=== PATIENT | male | born 1955 | race Caucasian/White ===

== ENCOUNTER 2018-04-12 06:19 | Outpatient (CLI) | payer MEDICARE, MEDICAID ==
[2018-04-12 09:49] LABS: Hemoglobin 15.9 g/dL (14.0-18.0); Mean Corpuscular HGB CONC 34.7 g/dL (32.0-36.0); Mean Corpuscular Hemoglobin 33.4 pg (27.0-31.0); Mean Corpuscular Volume 96.3 fL (78.0-98.0); Mean Platelet Volume 7.6 fL (7.4-10.4); Platelet Count 250 thou/uL (130-400); RBC Distribution Width 11.9 % (11.5-14.5); Red Blood Cell (RBC) Count 4.75 mill/uL (4.70-6.10); White Blood Cell (WBC) Count 7.9 thou/uL (4.8-10.8)
[2018-04-12 09:57] LABS: INR-International Normal Ratio 1.2; PTT 27.2 SEC (22.9-36.1); Prothrombin Time 15.1 SEC (12.0-14.7)
[2018-04-12 10:08] LABS: Anion Gap 12 mmol/L (10-20); BUN (Urea Nitrogen) 7 mg/dL (8.4-25.7); Calc. Creatinine Clearance 0 mL/min (70-130); Calcium 9.4 mg/dL (7.8-10.44); Carbon Dioxide 23 mmol/L (23-31); Chloride 102 mmol/L (98-107); Estimated GFR-MDRD Greater than 90; Glucose 124 mg/dL (80-115); Potassium 4.4 mmol/L (3.5-5.1); Sodium 133 mmol/L (136-145)
--- NOTE | 2018-04-12 17:10 | EKG ---
Test Reason : Blood Pressure : / mmHG Vent. Rate : 081 BPM Atrial Rate : 081 BPM P-R Int : 156 ms QRS Dur : 084 ms QT Int : 376 ms P-R-T Axes : 064 -56 063 degrees QTc Int : 436 ms Normal sinus rhythm Left anterior fascicular block Nonspecific T wave abnormality Abnormal ECG When compared with ECG of 09-DEC-1997 21:38, Left anterior fascicular block is now Present RSR' pattern in V1 is now Present Confirmed by DR. Santa MAX ([id number]) on 04/12/2018 5:10:01 PM Referred By: SAPPHIRE Confirmed By:DR. Santa MAX
== END 2018-04-12 06:20 | disposition home or self-care (01) ==
LOC: LABBT 06:19
PROVIDERS: ATTEND Orthopaedic Surgery
DX: Z01.818 Encounter for other preprocedural examination (principal); M17.11 Unilateral primary osteoarthritis, right knee
CPT/HCPCS: 80048; 85027; 85610; 85730; 87081; 93005; 93010

== ENCOUNTER 2018-04-13 09:41 | Inpatient (IN) | payer MEDICARE, MEDICAID ==
[2018-04-13] MEDS ORDERED: Ropivacaine 0.5% HCl/PF (150 MG/30 ML VIAL) ONE (10:16)
[2018-04-13] MEDS ORDERED: Bupivacaine 0.25% HCL 30 ML VIAL ONE (10:16)
[2018-04-13] MEDS ORDERED: Clindamycin/D5W 900 mg/50 ml Premix Bag ONE (11:15)
[2018-04-13] MEDS ORDERED: Midazolam HCl 2 mg/2 ml Vial ONE ×3 (11:16→13:21)
[2018-04-13] MEDS ORDERED: Fentanyl 100 MCG/2 ML VIAL ONE ×6 (11:17→16:08)
[2018-04-13] MEDS ORDERED: Promethazine HCl 25 MG/ML VIAL IM PRN ×2 (13:02→15:28)
[2018-04-13] MEDS ORDERED: Ropivacaine HCl/PF 250 ML in Premix Bag 1 BAG NERVE BLCK SCH (13:02)
[2018-04-13] MEDS ORDERED: traMADol HCl 50 MG TAB PO PRN ×2 (13:02)
[2018-04-13] MEDS ORDERED: Zolpidem Tartrate 5 MG TAB PO PRN (13:02)
[2018-04-13] MEDS ORDERED: Ondansetron PF 4 MG/2 ML Vial IVP PRN (13:02)
[2018-04-13] MEDS ORDERED: HYDROcodone/Acetaminophen 10/325 mg Tablet PO PRN (13:02)
[2018-04-13] MEDS ORDERED: Neomycin-Polymyxin 1 ML AMP ONE (13:07)
[2018-04-13] MEDS ORDERED: PROPOFOL 200 MG/20 ML VIAL ONE (14:33)
[2018-04-13] MEDS ORDERED: Ondansetron PF 4 MG/2 ML Vial ONE (14:33)
[2018-04-13] MEDS ORDERED: Lidocaine 1% PF 5 ML VIAL ONE (14:33)
[2018-04-13] MEDS ORDERED: Dexamethasone 20 MG/5 ML VIAL ONE (14:33)
[2018-04-13] MEDS ORDERED: Ondansetron HCl/PF 4 MG/2 ML Vial IVP PRN (15:28)
[2018-04-13] MEDS ORDERED: Promethazine HCl 25 MG/ML VIAL SLOW IVP PRN (15:28)
[2018-04-13] MEDS ORDERED: Ketorolac Tromethamine 30 MG/ML VIAL ONE ×2 (16:08→17:25)
[2018-04-13] MEDS: HYDROcodone/Acetaminophen 10/325 mg Tablet PO PRN ×2 (18:37→22:43)
[2018-04-13] MEDS ORDERED: Morphine 4 MG/ML VIAL SLOW IVP PRN ×4 (18:51→18:53)
[2018-04-13] MEDS ORDERED: Acetaminophen 325 MG TAB PO PRN (19:01)
[2018-04-13] MEDS ORDERED: Ondansetron ODT 4 MG TAB PO PRN (19:02)
[2018-04-13] MEDS ORDERED: Tranexamic Acid 1,000 MG in Sodium Chloride 0.9% 100 ML IVPB SCH (19:15)
[2018-04-13] MEDS: Sodium Chloride 0.9% 1,000 ML IV SCH (19:54)
[2018-04-13] MEDS: Clindamycin/D5W 900 MG in Premix Bag 1 BAG IVPB SCH (20:13)
[2018-04-13] MEDS: Fentanyl 100 MCG/2 ML VIAL IV PRN (20:22)
[2018-04-13] MEDS: ALPRAZolam 1 MG TAB PO SCH (21:22)
--- NOTE | 2018-04-13 22:41 | OP ---
DATE OF PROCEDURE: 04/13/2018 PREOPERATIVE DIAGNOSIS: Severe arthritis, right knee. POSTOPERATIVE DIAGNOSIS: Severe arthritis, right knee. PROCEDURE PERFORMED: Right total knee replacement. ANESTHESIA: General. TECHNIQUE: The patient was given preoperative IV antibiotics, taken to the operating room, placed in supine position. Satisfactory general anesthesia was performed. The right lower extremity was sterilely prepped and draped in usual fashion. After exsanguination, tourniquet was raised to 300 mmHg in the proximal right thigh. A longitudinal incision was made over the anterior aspect of the knee and medial parapatellar arthrotomy was performed. The patient had significant synovitis which was debrided as noted and the patient had severe arthritis in the medial compartment, moderate arthritis in the lateral compartment and patellofemoral joint. Using a [employer] instrumentation, intramedullary guide was used in the distal aspect of the femur and because the patient had a fairly significant flexion contracture, 14 mm of bone was removed from the distal femur. The medial and lateral menisci and anterior cruciate ligament were excised. The tibia was brought forward and extramedullary guide was used to cut the proximal tibia removing 2 mm from the most affected medial side. After the spurs were removed, the proximal tibia was measured as a size 5. The proximal tibia was prepared for the tibial stem and attention was then turned to the distal femur where the distal femoral jig was placed and cuts were made on the anterior, posterior, and chamfer cuts. The distal femur was measured, also the size 5. Holes were made for the femoral stems as well. The soft tissues medial, lateral, as well as posteriorly were balanced and trials were inserted. The 10 mm tibial insert was placed and this allowed for full extension of the knee with good flexion and the knee was very stable in both flexion and extension. The trials were removed. The undersurface of the patella was cut and then measured for 41 mm 3-PEG oval dome patella. Three holes were made for the three pegs and while the antibiotic impregnated methylmethacrylate was being mixed, the joint was copiously irrigated with antibiotic solution using the high-speed enrollment representative, the knee was then thoroughly dried and the tibial tray, which was a size 5 PFC Sigma was cemented into place. Excess methylmethacrylate was removed. The 10 mm insert was locked into the tibial tray. The 4/5 cruciate retaining component was impacted over the distal femur. The knee was placed in the full extension and the 41 mm 3-PEG oval dome patella was cemented into place. Knee joint again was irrigated while the cement was allowed to harden. The knee was then closed using #2 Vicryl for the retinacular tissue, 0-Vicryl for the fat and subcutaneous tissue, and the skin was closed with skin sugar. Sterile dressing was applied. The patient was then awakened, extubated, and transferred to recovery room in stable condition. ESTIMATED BLOOD LOSS: None. COMPLICATIONS: None. TOURNIQUET TIME: 64 minutes. Job ID: [id number]
[2018-04-14] MEDS: HYDROcodone/Acetaminophen 10/325 mg Tablet PO PRN ×5 (02:41→21:17)
[2018-04-14] MEDS: Clindamycin/D5W 900 MG in Premix Bag 1 BAG IVPB SCH (03:36)
[2018-04-14] MEDS: Fentanyl 100 MCG/2 ML VIAL IV PRN ×2 (03:36→13:31)
[2018-04-14] MEDS: Sodium Chloride 0.9% 1,000 ML IV SCH ×2 (05:15→15:34)
[2018-04-14] MEDS: ALPRAZolam 0.5 MG TAB PO PRN (09:32)
[2018-04-14] MEDS: Ketorolac Tromethamine 30 MG/ML VIAL IVP PRN (09:38)
--- NOTE | 2018-04-14 16:21 | RAD ---
TWO VIEWS RIGHT KNEE: Comparison: None. History: Status post right knee arthroplasty. FINDINGS: Two views right knee shows the patient to be status post right knee arthroplasty. There is lucency al konstantin the medial aspect of the femoral portion of the prosthesis without fracture. Overlying skin stapl es are from recent surgery. IMPRESSION: Status post right knee arthroplasty. POS: [facility]
[2018-04-14] MEDS: ALPRAZolam 1 MG TAB PO SCH (21:16)
[2018-04-15] MEDS: HYDROcodone/Acetaminophen 10/325 mg Tablet PO PRN ×5 (02:46→22:12)
[2018-04-15] MEDS: Sodium Chloride 0.9% 1,000 ML IV SCH ×4 (02:47→22:36)
--- NOTE | 2018-04-15 05:12 | PRG ---
DATE OF SERVICE: 04/14/2018 Mr. Betancur has excellent pain control from the nerve block that was performed by Anesthesia. He has been able to get out of bed with physical therapy. The patient has been afebrile during the postoperative course. His vital signs are stable. His last blood pressure was 124/74. The incision over the right knee is healing well. He has usual amount of swelling and bruising. The patient is unable to dorsiflex or plantar flex the right ankle or move his toes secondary to the nerve block. The dressing was changed today. We will obtain hemoglobin and hematocrit tomorrow morning. We will continue to work with physical therapy and probably discharge home tomorrow with Home Health. Job ID: [id number]
[2018-04-15 06:54] LABS: Hemoglobin 10.9 g/dL (14.0-18.0)
[2018-04-15] MEDS: Ketorolac Tromethamine 30 MG/ML VIAL IVP PRN (07:16)
[2018-04-15] MEDS: Aspirin 325 MG TAB PO SCH (07:23)
[2018-04-15] MEDS: Fentanyl 100 MCG/2 ML VIAL IV PRN ×2 (09:30→15:53)
[2018-04-15] MEDS: ALPRAZolam 0.5 MG TAB PO PRN (12:03)
--- NOTE | 2018-04-15 15:03 | DIS ---
DATE OF ADMISSION: 04/13/2018 DATE OF DISCHARGE: 04/15/2018 HISTORY OF PRESENT ILLNESS: Please see admission history and physical. HOSPITAL COURSE: The patient was worked up medically prior to admission, found to be stable for surgery. On the date of admission, the patient was given perioperative IV antibiotics, taken to the operating room, underwent general anesthetic, underwent right total knee replacement. The patient had a nerve block performed by Anesthesia, which gave excellent pain relief. When the nerve blocks were off on postoperative day #2, his right lower extremity was neurovascularly intact. He worked with Physical therapy and by the day of discharge, was independently ambulatory with a walker, unable to get out of bed independently. The patient remained afebrile. Vital signs remained stable. Postoperative hemoglobin was 10.9. Dressing was changed. Incision was healing well. DISCHARGE DIAGNOSIS: Severe arthritis, right knee, requiring total knee replacement. DISCHARGE MEDICATIONS: The patient will continue with; 1. Aspirin 325 mg daily. 2. [place] 10 one every 6 hours as needed for pain, #60. Follow up in my office in two weeks. Job ID: [id number]
[2018-04-15] MEDS ORDERED: ALPRAZOLAM PO SCH ×2 (21:00)
[2018-04-15] MEDS: ALPRAZolam 1 MG TAB PO SCH (21:20)
[2018-04-15 23:11] VITALS: BMI 29.9
[2018-04-16] MEDS: HYDROcodone/Acetaminophen 10/325 mg Tablet PO PRN ×2 (02:58→10:32)
[2018-04-16 09:03] VITALS: BP 154/92; TEMP 98.1
[2018-04-16] MEDS: Aspirin 325 MG TAB PO SCH (09:36)
[2018-04-16] MEDS: ALPRAZolam 0.5 MG TAB PO PRN (10:39)
== END 2018-04-16 10:45 | disposition home or self-care (01) | DRG 470 ==
LOC: SDC 09:41 → SURG A 18:14
PROVIDERS: ADMIT Orthopaedic Surgery; ATTEND Orthopaedic Surgery
PROC: 0SRC0J9 Replacement of Right Knee Joint with Synthetic Substitute, Cemented, Open Approach (ICD-10-PCS; principal; 2018-04-13)
PROC: 3E0234Z Introduction of Serum, Toxoid and Vaccine into Muscle, Percutaneous Approach (ICD-10-PCS; 2018-04-14)
DX: M17.11 Unilateral primary osteoarthritis, right knee (principal); J44.9 Chronic obstructive pulmonary disease, unspecified; E07.9 Disorder of thyroid, unspecified; E11.9 Type 2 diabetes mellitus without complications; F31.9 Bipolar disorder, unspecified; B19.20 Unspecified viral hepatitis C without hepatic coma; Z79.890 Hormone replacement therapy; Z88.0 Allergy status to penicillin; Z23 Encounter for immunization
CPT/HCPCS: 36415; 80048; 85014; 85018; 85027; 85610; 85730; 87081; 90471; 90732; 93005; 93010; C1713; C1776; G0009; J1100; J1885; J2001; J2250; J2405; J2704; J2795; J3010; J3490; J7050; S0020

== ENCOUNTER 2019-06-16 11:29 | Outpatient (CLI) | payer MEDICARE, MEDICAID ==
[2019-06-16 13:18] LABS: #Basophils 0.1 thou/uL (0.0-0.2); #Eosinphils 0.1 thou/uL (0.0-0.7); #Lymphocytes 2.3 thou/uL (1.20-3.40); #Monocytes 0.6 thou/uL (0.11-0.59); #Neutrophils 4.4 thou/uL (1.40-6.50); %Eosinophils 1.7 % (0.0-10.0); %Monocytes 7.4 % (0.0-10.0); %Neutrophils 58.8 % (42.0-75.0); Hemoglobin 16.3 g/dL (14.0-18.0); Mean Corpuscular HGB CONC 34.5 g/dL (32.0-36.0); Mean Corpuscular Hemoglobin 35.2 pg (27.0-31.0); Mean Platelet Volume 7.9 fL (7.4-10.4); Platelet Count 184 thou/uL (130-400); RBC Distribution Width 13.1 % (11.5-14.5); Red Blood Cell (RBC) Count 4.65 mill/uL (4.70-6.10); White Blood Cell (WBC) Count 7.5 thou/uL (4.8-10.8)
[2019-06-16 13:59] LABS: Anion Gap 15 mmol/L (10-20); BUN (Urea Nitrogen) 7 mg/dL (8.4-25.7); Calc. Creatinine Clearance 0 mL/min (70-130); Calcium 9.1 mg/dL (7.8-10.44); Carbon Dioxide 22 mmol/L (23-31); Chloride 102 mmol/L (98-107); Estimated GFR-MDRD Greater than 90; Glucose 105 mg/dL (80-115); Potassium 3.9 mmol/L (3.5-5.1); Sodium 135 mmol/L (136-145)
== END 2019-06-16 11:30 | disposition home or self-care (01) ==
LOC: LABBT 11:29
PROVIDERS: ATTEND Orthopaedic Surgery
DX: Z01.818 Encounter for other preprocedural examination (principal); M17.12 Unilateral primary osteoarthritis, left knee
CPT/HCPCS: 80048; 85025; 85610; 87081; 93005; 93010

== ENCOUNTER 2019-06-21 10:45 | Day surgery (SDC) | payer MEDICARE, MEDICAID ==
[2019-06-16 11:40] VITALS: BMI 29.1
[~2019-06-21 10:45] MED LIST: Bupivacaine HCl 0.5%/Epinephrine 1:200,000/PF 30 ml Vial ONE; EPHEDRINE 25 MG/5 ML SYRINGE ONE; Glycopyrrolate 0.2 MG/ML 5 ML SYRINGE ONE; Lidocaine 1% PF 5 ML VIAL ONE; Ondansetron PF 4 MG/2 ML Vial ONE; PROPOFOL 200 MG/20 ML VIAL ONE; Ropivacaine 0.2% HCl/PF (40 MG/20 ML VIAL) ONE
[2019-06-21] MEDS ORDERED: Clindamycin/D5W 900 mg/50 ml Premix Bag ONE (11:22)
[2019-06-21] MEDS ORDERED: Fentanyl 100 MCG/2 ML VIAL ONE ×7 (11:51→15:55)
[2019-06-21] MEDS ORDERED: Midazolam HCl 2 mg/2 ml Vial ONE ×2 (11:56→12:19)
[2019-06-21] MEDS ORDERED: Acetaminophen 325 MG TAB PO PRN ×2 (12:41→14:21)
[2019-06-21] MEDS ORDERED: Promethazine HCl 25 MG/ML VIAL IM PRN ×3 (12:41→14:23)
[2019-06-21] MEDS ORDERED: Ondansetron PF 4 MG/2 ML Vial IVP PRN ×2 (12:41→14:21)
[2019-06-21] MEDS ORDERED: Zolpidem Tartrate 5 MG TAB PO PRN ×2 (12:41→14:21)
[2019-06-21] MEDS ORDERED: traMADol HCl 50 MG TAB PO PRN ×2 (12:41)
[2019-06-21] MEDS ORDERED: Ropivacaine HCl/PF 250 ML in Premix Bag 1 BAG NERVE BLCK SCH (12:41)
[2019-06-21] MEDS ORDERED: HYDROcodone/Acetaminophen 10/325 mg Tablet PO PRN (12:41)
[2019-06-21] MEDS ORDERED: Fentanyl 100 MCG/2 ML VIAL IV PRN (12:44)
[2019-06-21] MEDS ORDERED: diphenhydrAMINE 25 MG CAP PO PRN (14:21)
[2019-06-21] MEDS ORDERED: PACU-Morphine 4MG/ML VIAL SLOW IVP PRN (14:23)
[2019-06-21] MEDS ORDERED: Meperidine HCl/PF 25 MG/ML VIAL SLOW IVP PRN (14:23)
[2019-06-21] MEDS ORDERED: Ondansetron HCl/PF 4 MG/2 ML Vial IVP PRN (14:23)
[2019-06-21] MEDS ORDERED: HYDROmorphone 2 MG/ML VIAL SLOW IVP PRN (14:23)
[2019-06-21] MEDS ORDERED: Morphine Sulfate 2 MG/ML SYRINGE SLOW IVP PRN (14:23)
[2019-06-21] MEDS ORDERED: Promethazine HCl 25 MG/ML VIAL SLOW IVP PRN (14:23)
--- NOTE | 2019-06-21 14:37 | RAD ---
Exam:2 views left knee HISTORY: Status post arthroplasty COMPARISON: None FINDINGS: Compatible with left knee arthroplasty. Expected postoperative changes. Near anatomic align ment. IMPRESSION: Findings compatible left knee arthroplasty.
--- NOTE | 2019-06-21 14:57 | OP ---
DATE OF PROCEDURE: 06/21/2019 PREOPERATIVE DIAGNOSIS: Severe arthritis of the left knee. POSTOPERATIVE DIAGNOSIS: Severe arthritis of the left knee. PROCEDURE PERFORMED: Left total knee replacement. ANESTHESIA: General. DESCRIPTION OF PROCEDURE: The patient had a block performed by Anesthesia prior to surgery. He was given preoperative IV antibiotics. He was taken to the operating room, placed in supine position. Satisfactory general anesthesia was performed. The left lower extremity was sterilely prepped and draped in usual fashion. After exsanguination, tourniquet was raised to 250 mmHg. Anterior incision was made over the knee and a medial parapatellar arthrotomy was performed. The patient was noted to have severe arthritis, particularly in the medial compartment, but also moderate arthritis in the patellofemoral joint and mild arthritis in the lateral compartment. The synovectomy was performed. The anterior cruciate ligament was removed. The medial and lateral menisci were removed, and through an intramedullary jig, the distal femur was cut. 12 mm were cut off the distal femur because of a preoperative flexion contracture and it was cut at a 5-degree valgus angle. The proximal tibia was then exposed. The spurs were removed. Extramedullary guide was used and cut was made on the proximal aspect of the tibia, leaving the posterior cruciate ligament intact. The tibial surface measured at a size 9 and the plate was pinned in place and the hole was made on the under surface of the base plate. The distal femur was measured to a size 8. The jig was placed and cuts were made on the anterior, posterior, and chamfer cuts. Extra spurs were removed from the distal femur and the proximal tibia. The femoral trial was inserted and holes were made for the femoral stem, and the different tibial insert, trial thickness was inserted. The size 14 mm thickness allowed for full extension of the knee and had good stability in both flexion and extension. These trials were removed. The undersurface of the patella was cut with the patellar jig and 3 holes were made with a 35 mm domed Tri-Peg patella. The knee joint was copiously irrigated with antibiotic solution, sterilely dried. The patella was cemented into place and using the methyl methacrylate with antibiotics and the size 9 finned base plate was also cemented into place. The 14 mm tibial insert was locked into the base plate and the porous size 8 femoral component was impacted over the distal femur. The knee was placed in full extension. Excess methyl methacrylate was removed both in flexion and extension, and the cement was allowed to harden. The knee again was checked and was very stable. The knee was closed using #2 Vicryl for the retinacular tissue, 0-Vicryl for the fat and subcutaneous tissue, and skin was closed with skin sugar. Sterile dressing was applied. The tourniquet was released. The patient was awakened, extubated, and transferred to recovery room in stable condition. ESTIMATED BLOOD LOSS: None. COMPLICATIONS: None. TOURNIQUET TIME: 60 minutes. Job ID: [id number]
[2019-06-21] MEDS ORDERED: Ketorolac Tromethamine 30 MG/ML VIAL ONE (15:54)
[2019-06-21] MEDS ORDERED: Ketorolac Tromethamine 30 MG/ML VIAL IVP SCH (18:00)
--- NOTE | 2019-06-21 18:14 | PDOC.HOSPP ---
- Subjective Encounter Date: 06/21/19 Encounter Time: 18:14 Subjective: Patient seen and examined. No new complaints. admitted for left TKR consulted for medical management - Objective Vital Signs & Weight: Vital Signs (12 hours) Temp Pulse Resp BP Pulse Ox 06/21/19 16:35 96.6 F L 74 16 129/78 100 Weight Weight 215 lb Additional Labs: old pre operative labs reviewed Radiology Reviewed by me: Yes Hospitalist ROS - Review of Systems ENT: denies: ear pain, ear discharge, nose pain, nose discharge, nose congestion , mouth pain, mouth swelling, throat pain, throat swelling, other Respiratory: denies: cough, dry, shortness of breath, hemoptysis, SOB with excertion, pleuritic pain, sputum, wheezing, other Cardiovascular: denies: chest pain, palpitations, orthopnea, paroxysmal noc. dyspnea, edema, light headedness, other Gastrointestinal: denies: nausea, vomiting, abdominal pain, diarrhea, constipation, melena, hematochezia, other Genitourinary: denies: dysuria, frequency, incontinence, hematuria, retention, other Musculoskeletal: denies: neck pain, shoulder pain, arm pain, back pain, hand pain, leg pain, foot pain, other - Medication Medications: Active Medications Generic Name Dose Route Start Last Admin Trade Name Freq PRN Reason Stop Dose Admin Fentanyl 50 mcg 06/21/19 12:44 06/21/19 17:09 Sublimaze IV 50 mcg Q1H PRN Administration Breakthrough Pain - Exam General Appearance: NAD, awake alert Eye: PERRL, anicteric sclera ENT: normocephalic atraumatic, no oropharyngeal lesions Neck: supple, symmetric, no JVD, no thyromegaly Heart: RRR, no murmur, no gallops, no rubs Respiratory: CTAB, no wheezes, no rales, no ronchi Gastrointestinal: soft, non-tender, non-distended, normal bowel sounds Extremities: no cyanosis, no clubbing, no edema Extremities - other findings: left knee with dressing, nerve block in place Skin: normal turgor, no lesions Neurological: no focal deficits Musculoskeletal: normal tone, normal strength Psychiatric: normal affect, normal behavior Hosp A/P (1) Status post total left knee replacement Code(s): Z96.652 - PRESENCE OF LEFT ARTIFICIAL KNEE JOINT Status: Acute (2) Hypertension Code(s): I10 - ESSENTIAL (PRIMARY) HYPERTENSION Status: Chronic (3) Anxiety and depression Code(s): F41.9 - ANXIETY DISORDER, UNSPECIFIED; F32.9 - MAJOR DEPRESSIVE DISORDER, SINGLE EPISODE, UNSPECIFIED Status: Chronic (4) Osteoarthritis Code(s): M19.90 - UNSPECIFIED OSTEOARTHRITIS, UNSPECIFIED SITE Status: Chronic - Plan old records reviewed/req, plan discussed w/ family, colon catheter, PT/OT medication reviewed, symptomatic care, supportive care, PT/OT as per [facility] protocol Home medication reconciled, nerve block as per anesthesia, aspirin for DVT prophylaxis pain control with pain meds as tolerated.
[2019-06-21] MEDS: HYDROcodone/Acetaminophen 10/325 mg Tablet PO PRN ×2 (18:28→22:41)
[2019-06-21] MEDS: Clindamycin/D5W 900 MG in Premix Bag 1 BAG IVPB SCH ×2 (18:29→22:41)
[2019-06-21] MEDS: cloNIDine 0.1 MG TAB PO SCH (20:55)
[2019-06-21] MEDS: Mirtazapine 30 MG TAB PO SCH (20:55)
[2019-06-21] MEDS: Ferrous Gluconate 324 MG TAB PO SCH (20:55)
[2019-06-21] MEDS: Senokot S 8.6-50 MG TAB PO SCH (20:55)
[2019-06-21] MEDS: Aspirin 81 mg Enteric Coated Tablet PO SCH (20:55)
[2019-06-21] MEDS ORDERED: (Alprazolam [Alprazolam Xr] 1 MG) PO SCH (21:00)
[2019-06-21] MEDS: Ketorolac Tromethamine 30 MG/ML VIAL IVP SCH (21:02)
[2019-06-22] MEDS: HYDROcodone/Acetaminophen 10/325 mg Tablet PO PRN ×4 (02:45→18:18)
[2019-06-22] MEDS: Ketorolac Tromethamine 30 MG/ML VIAL IVP SCH ×4 (05:32→21:22)
[2019-06-22 07:09] LABS: Hemoglobin 11.8 g/dL (14.0-18.0); Mean Corpuscular HGB CONC 34.4 g/dL (32.0-36.0); Mean Corpuscular Hemoglobin 35.2 pg (27.0-31.0); Mean Platelet Volume 7.9 fL (7.4-10.4); Platelet Count 156 thou/uL (130-400); RBC Distribution Width 12.5 % (11.5-14.5); Red Blood Cell (RBC) Count 3.34 mill/uL (4.70-6.10); White Blood Cell (WBC) Count 11.8 thou/uL (4.8-10.8)
[2019-06-22] MEDS: Aspirin 81 mg Enteric Coated Tablet PO SCH ×2 (08:59→21:17)
[2019-06-22] MEDS: Multivitamin W/ Minerals 1 TAB PO SCH (08:59)
[2019-06-22] MEDS: Senokot S 8.6-50 MG TAB PO SCH ×2 (08:59→21:21)
[2019-06-22] MEDS ORDERED: ALPRAZolam 1 MG TAB PO SCH ×2 (09:00→21:00)
[2019-06-22] MEDS: Ferrous Gluconate 324 MG TAB PO SCH ×2 (09:00→21:20)
[2019-06-22] MEDS ORDERED: ALPRAZolam 1 MG TAB PO PRN (11:25)
--- NOTE | 2019-06-22 16:24 | PRG ---
DATE OF SERVICE: 06/22/2019 SUBJECTIVE: The patient is 1 day status post left total knee replacement. The patient has had a block, which is giving him good pain relief. He has had some bleeding through the dressing, but he was able to ambulate in the hallway earlier today. The patient's hemoglobin is 11.8 this morning and hematocrit was 34.2. OBJECTIVE: The patient has been afebrile. His last blood pressure was 100/64, respiratory rate 16, and pulse 85. PLAN: The patient will continue with Physical and Occupational Therapy. His CBC will be rechecked again tomorrow. Job ID: [id number]
--- NOTE | 2019-06-22 16:52 | PDOC.HOSPP ---
- Subjective Encounter Date: 06/22/19 Encounter Time: 19:00 Subjective: The patient states his knee pain is starting to increase. He is on ropivacaine currently and feels his pain is coming back. No bowel movement yet. No nausea or vomiting. States he has never had an issue with high blood pressure. - Objective Vital Signs & Weight: Vital Signs (12 hours) Temp Pulse Resp BP Pulse Ox 06/22/19 15:30 98.2 F 85 16 100/64 97 06/22/19 11:19 98.5 F 84 18 96/62 97 06/22/19 07:24 97.9 F 69 18 116/73 95 Weight Admit Weight 215 lb Weight 215 lb I&O: 06/21/19 06/22/19 06/23/19 06:59 06:59 06:59 Intake Total 600 240 Output Total 1400 Balance -800 240 Result Diagrams: 06/22/19 06:46 Hospitalist ROS - Review of Systems Constitutional: denies: fever, chills Eyes: denies: pain, vision change - Medication Medications: Active Medications Generic Name Dose Route Start Last Admin Trade Name Freq PRN Reason Stop Dose Admin Hydrocodone Bitart/Acetaminophen 2 tab 06/21/19 12:41 06/22/19 13:39 [place] 10/325 PO 2 tab Q4H PRN Administration PAIN (4-6) Aspirin 81 mg 06/21/19 21:00 06/22/19 08:59 Ecotrin PO 81 mg BID KANE Administration Clonidine 0.1 mg 06/21/19 21:00 06/21/19 20:55 Catapres PO 0.1 mg HS KANE Administration Fentanyl 50 mcg 06/21/19 12:44 06/21/19 17:09 Sublimaze IV 50 mcg Q1H PRN Administration Breakthrough Pain Ferrous Gluconate 324 mg 06/21/19 21:00 06/22/19 09:00 Fergon PO 324 mg BID KANE Administration Iron/Minerals/Multivitamins 1 tab 06/22/19 09:00 06/22/19 08:59 Theragran M PO 1 tab DAILY KANE Administration Ketorolac Tromethamine 30 mg 06/21/19 22:00 06/22/19 16:32 Toradol IVP 06/23/19 16:01 30 mg 0400,1000,1600,2200 KANE Administration Mirtazapine 30 mg 06/21/19 21:00 06/21/19 20:55 Remeron PO 30 mg HS KANE Administration Quetiapine Fumarate 300 mg 06/21/19 21:00 06/22/19 09:00 Seroquel PO 300 mg BID KANE Administration Senna/Docusate Sodium 2 tab 06/21/19 21:00 06/22/19 08:59 Senokot S PO 2 tab BID KANE Administration - Exam General Appearance: NAD, awake alert Eye: PERRL, anicteric sclera ENT: normocephalic atraumatic, no oropharyngeal lesions Neck: no JVD Heart: RRR, no murmur, no gallops, no rubs Respiratory: CTAB, no wheezes, no rales, no ronchi, no tachypnea Gastrointestinal: soft, non-tender, non-distended, normal bowel sounds, no splenomegaly Extremities: no cyanosis, no clubbing, no edema Skin: normal turgor, no lesions, no rashes Neurological: cranial nerve grossly intact, normal sensation to touch, no focal deficits, no new deficit Musculoskeletal: normal tone, normal strength, no muscle wasting Hosp A/P (1) Status post total left knee replacement Code(s): Z96.652 - PRESENCE OF LEFT ARTIFICIAL KNEE JOINT Status: Acute (2) Anxiety and depression Code(s): F41.9 - ANXIETY DISORDER, UNSPECIFIED; F32.9 - MAJOR DEPRESSIVE DISORDER, SINGLE EPISODE, UNSPECIFIED Status: Chronic (3) Hypertension Code(s): I10 - ESSENTIAL (PRIMARY) HYPERTENSION Status: Chronic (4) Osteoarthritis Code(s): M19.90 - UNSPECIFIED OSTEOARTHRITIS, UNSPECIFIED SITE Status: Chronic (5) S/P knee replacement Code(s): Z96.659 - PRESENCE OF UNSPECIFIED ARTIFICIAL KNEE JOINT Status: Acute - Plan 64 year old s/p left total knee replacement POD1 S/p left total knee replacement POD1 - pain management per ortho Hypertension - controlled - on clonidine qhs Depression/Anxiety - on mirtazapine,seroquel Anemia - recheck CBC tomorrow -
[2019-06-22] MEDS: cloNIDine 0.1 MG TAB PO SCH (21:18)
[2019-06-22] MEDS: Mirtazapine 30 MG TAB PO SCH (21:21)
[2019-06-23] MEDS: HYDROcodone/Acetaminophen 10/325 mg Tablet PO PRN ×4 (00:58→13:55)
[2019-06-23] MEDS: Ketorolac Tromethamine 30 MG/ML VIAL IVP SCH ×2 (04:58→09:07)
[2019-06-23 05:32] LABS: Mean Corpuscular HGB CONC 33.6 g/dL (32.0-36.0); Mean Corpuscular Hemoglobin 35.1 pg (27.0-31.0); Platelet Count 130 thou/uL (130-400); RBC Distribution Width 12.7 % (11.5-14.5); Red Blood Cell (RBC) Count 2.86 mill/uL (4.70-6.10); White Blood Cell (WBC) Count 5.5 thou/uL (4.8-10.8)
[2019-06-23 05:52] LABS: Anion Gap 14 mmol/L (10-20); BUN (Urea Nitrogen) 14 mg/dL (8.4-25.7); Calc. Creatinine Clearance 160 mL/min (70-130); Carbon Dioxide 19 mmol/L (23-31); Chloride 107 mmol/L (98-107); Estimated GFR-MDRD Greater than 90; Glucose 114 mg/dL (80-115); Potassium 4.1 mmol/L (3.5-5.1); Sodium 136 mmol/L (136-145)
[2019-06-23] MEDS: Multivitamin W/ Minerals 1 TAB PO SCH (09:05)
[2019-06-23] MEDS: Ferrous Gluconate 324 MG TAB PO SCH (09:06)
[2019-06-23] MEDS: Senokot S 8.6-50 MG TAB PO SCH (09:06)
[2019-06-23] MEDS: Aspirin 81 mg Enteric Coated Tablet PO SCH (09:06)
[2019-06-23] MEDS ORDERED: Lice Shampoo 120 ML BOT TOP SCH (11:15)
[2019-06-23] MEDS ORDERED: Permethrin 5% Cream 60 GM TUBE TOP SCH (11:15)
--- NOTE | 2019-06-23 14:34 | DIS ---
DATE OF ADMISSION: 06/21/2019 DATE OF DISCHARGE: 06/23/2019 HISTORY OF PRESENT ILLNESS: Please see admission history and physical. HOSPITAL COURSE: The patient was worked up medically prior to admission. He was given perioperative IV antibiotics, taken to operating room, and under general anesthetic, the patient underwent left total knee replacement. The patient had a block for his left knee performed by Anesthesia, which provided good pain relief. Per postoperative day #1, he was started on physical therapy, and by day of discharge, was able to independently get out of bed and ambulate with a walker safely. The dressing was changed. Incision had some bloody drainage, but was healing well. Left lower extremity was neurovascularly intact. His laboratory day after surgery, his hemoglobin was 11.8, and two days after surgery was 10. The patient remained afebrile. Vital signs remained stable. The patient was able to be safely discharged to home with home health and home physical therapy. DISCHARGE DIAGNOSES: 1. Severe arthritis, left knee requiring total knee replacement. 2. Anemia secondary to expected blood loss from surgery. DISCHARGE MEDICATIONS: The patient will continue with his previous home medications. I wrote a prescription for [place] 10 one every 6 hours as needed for pain #40. FOLLOWUP: Follow up in my office 2 weeks after surgery. Job ID: [id number]
[2019-06-23 15:50] VITALS: BP 126/77; TEMP 98.6
== END 2019-06-23 16:16 | disposition home health service (06) ==
LOC: SDC 10:45 → EDSTATUS 14:00 → SJJU 16:58 → SDC 06-23 16:16
PROVIDERS: ATTEND Orthopaedic Surgery
PROC: 0SRD0J9 Replacement of Left Knee Joint with Synthetic Substitute, Cemented, Open Approach (ICD-10-PCS; principal; 2019-06-21)
PROC: 3E0T3BZ Introduction of Anesthetic Agent into Peripheral Nerves and Plexi, Percutaneous Approach (ICD-10-PCS; 2019-06-21)
PROC: 3E0T3BZ Introduction of Anesthetic Agent into Peripheral Nerves and Plexi, Percutaneous Approach (ICD-10-PCS; 2019-06-21)
DX: M17.12 Unilateral primary osteoarthritis, left knee (principal); D62 Acute posthemorrhagic anemia; I10 Essential (primary) hypertension; F41.9 Anxiety disorder, unspecified; F32.9 Major depressive disorder, single episode, unspecified; Z79.899 Other long term (current) drug therapy; Z88.0 Allergy status to penicillin
CPT/HCPCS: 36415; 80048; 82607; 82746; 85027; C1713; J0670; J1885; J2001; J2250; J2405; J2704; J2795; J3010; J3490

== ENCOUNTER 2020-05-18 15:33 | Emergency (ER) | payer MEDICARE, MEDICAID ==
[2020-05-18 22:24] LABS: SARS-CoV-2 PCR by NAA Not Detected (NotDetected)
== END 2020-05-18 16:15 | disposition home or self-care (01) ==
LOC: ERS 15:33
DX: Z20.822 Contact with and (suspected) exposure to COVID-19 (principal)
CPT/HCPCS: U0003; U0005; 87635; 99283